=== PATIENT | male | born 1995 | race Caucasian/White ===

== ENCOUNTER 2019-05-01 07:18 | Emergency (ER) | payer OTHER ==
[~2019-05-01] VITALS: Ht 172.7 cm; Wt 77.1 kg
[~2019-05-01 07:18] MED LIST: ABILIFY10 MG PO; ABILIFY15 MG PO; ACETAMINOPHEN-1 EAC1 PO; CEPHALEXIN 500500 M3 PO; CETA-KLENZ SKI473 ML; CLONAZEPAM 1 MG1 M1 PO; EAC TP; FLOVENT DISKU250 MCG IH; FLOVENT HFA 1110 MCG INH; LAMICTAL 25 MG25 M1 PO; LAMICTAL100 MG PO; MINOCIN100 MG PO; ONDANSETRON HCL4 M2 PO; PRILOSEC 20 MG20 MG PO; SINGULAIR 10 MG10 M1 PO; SOLODYN65 MG PO; TAZORAC30 G1; TYLENOL325 MG PO; VENTOLIN HFA 1818 GM INH; VITAMIN D31000 UNI2 PO; WELLBUTRIN XL300 M1 PO; ZANTAC 150MG T150 MG PO; ZOLOFT100 MG PO
[2019-05-01] MEDS ORDERED: PROTONIX 20 MG20 MG PO (07:31)
[2019-05-01] MEDS ORDERED: COLACE100 MG PO (07:31)
[2019-05-01 07:55] LABS: ABSOLUTE EOSINOPHILS 0.2 thou/uL (0.0-0.7); ABSOLUTE LYMPHOCYTES 0.7 thou/uL (0.8-5.3); ABSOLUTE MONOCYTES 1.1 thou/uL (0.0-1.2); ABSOLUTE NEUTROPHILS 8.5 thou/uL (1.6-8.1); BASOPHILS 0.3 %; EOSINOPHILS 1.6 %; HEMATOCRIT 50.2 % (42.0-52.0); HEMOGLOBIN 17.9 gm/dL (14.0-18.0); LYMPHOCYTES 6.5 %; MCH 32.6 pg (26.0-34.0); MCHC 35.6 g/dL (28.0-37.0); MCV 91.4 fL (80.0-100.0); MONOCYTES 10.1 %; MPV 8.2 fl. (7.2-11.1); NUCLEATED RBCS 0 /100WBC; PLATELET COUNT* 244 thou/uL (150-400); POLYS 81.5 %; RDW-CV 13.3 % (10.5-14.5); WBC 10.5 thou/uL (4.0-11.0)
[2019-05-01 08:00] LABS: CREATININE 1.1 mg/dL (0.6-1.3); POTASSIUM 4.1 mmol/L (3.5-5.1)
[2019-05-01 08:07] LABS: ALBUMIN 4.5 g/dL (3.4-5.0); TOTAL BILIRUBIN 1.3 mg/dL (<0.1-1.0); TOTAL PROTEIN 7.9 g/dL (6.4-8.2)
[2019-05-01 08:40] LABS: URINE BLOOD NEGATIVE (Negative); URINE CLARITY CLEAR; URINE COLOR YELLOW; URINE GLUCOSE-RANDOM NEGATIVE (Negative); URINE KETONES 1+ (Negative); URINE LEUKOCYTES-REFLEX NEGATIVE (Negative); URINE NITRITE-REFLEX NEGATIVE (Negative); URINE PROTEIN NEGATIVE (Negative); URINE SPECIFIC GRAVITY >= 1.030 (1.005-1.030); URINE UROBILINOGEN 0.2 E.U./dl (0.2-1.0)
[2019-05-01 08:43] LABS: ICTOTEST (BILI CONFIRMATORY) Negative (Negative); URINE BILIRUBIN 1+ (Negative)
[2019-05-01 09:56] LABS: INFLUENZA A ANTIGEN Negative (Negative); INFLUENZA B ANTIGEN Negative (Negative)
[2019-05-01 10:50] VITALS: BP 106/60
== END 2019-05-01 10:51 | disposition home or self-care (01) ==
LOC: M.ERS 07:18
PROVIDERS: Family Medicine
DX: R19.7 Diarrhea, unspecified (principal); J45.909 Unspecified asthma, uncomplicated; Z91.012 Allergy to eggs; Z91.018 Allergy to other foods

== ENCOUNTER 2019-12-26 22:14 | Emergency (ER) | payer OTHER ==
[~2019-12-26] VITALS: Ht 175.3 cm; Wt 74.8 kg
[~2019-12-26 22:14] MED LIST changes: +COLACE100 MG PO; +PROTONIX 20 MG20 MG PO
[2019-12-27] MEDS ORDERED: DOXYCYCLINE 10100 MG PO (00:36)
[2019-12-27 00:57] VITALS: BP 129/79
== END 2019-12-27 00:57 | disposition home or self-care (01) ==
LOC: M.ERS 22:14
DX: L08.9 Local infection of the skin and subcutaneous tissue, unspecified (principal); M79.642 Pain in left hand; J45.909 Unspecified asthma, uncomplicated; Z91.018 Allergy to other foods; Z91.012 Allergy to eggs